=== PATIENT | female | born 1960 | race Caucasian/White ===

== ENCOUNTER 2017-12-17 13:27 | Emergency (ER) | payer MEDICARE ==
--- NOTE | 2017-12-17 14:10 | ULT ---
ULTRASOUND WITH DOPPLER DUPLEX VENOUS LOWER EXTREMITY LEFT: Date: 12/17/17 HISTORY: 56-year-old female with left lower extremity pain. TECHNIQUE: Color flow Doppler, spectral waveform analysis of pulsed Doppler, and dominique-scale imaging with loren macy and augmentation, were used to evaluate the left common femoral, femoral, popliteal, posterior t ibial, and superficial femoral, veins; and the proximal portions of the profunda femoral and greater saphenous, veins. FINDINGS: There is normal compressibility, demonstration of blood flow by color Doppler and pulsed Doppler, and response to augmentation, in all interrogated veins. IMPRESSION: Negative. No deep vein thrombosis in the left lower extremity. jn[] POS: [facility]
== END 2017-12-17 15:02 | disposition home or self-care (01) ==
LOC: ERS 13:27
DX: S80.12XA Contusion of left lower leg, initial encounter (principal); I10 Essential (primary) hypertension; F44.81 Dissociative identity disorder; E78.5 Hyperlipidemia, unspecified; E78.00 Pure hypercholesterolemia, unspecified; W55.19XA Other contact with horse, initial encounter; M79.605 Pain in left leg

== ENCOUNTER 2018-02-11 14:52 | Outpatient (CLI) | payer MEDICARE | END 2018-02-11 14:53 | disposition home or self-care (01) | LOC: BICMAMMO 14:52 | PROVIDERS: ATTEND Family Medicine | DX: Z12.31 Encounter for screening mammogram for malignant neoplasm of breast (principal) | CPT/HCPCS: 77063; 77067 ==

== ENCOUNTER 2019-07-16 11:04 | Outpatient (CLI) | payer MEDICARE ==
--- NOTE | 2019-07-17 08:49 | MMO ---
Bilateral MAMMO Bilat Screen [facility]. CLINICAL HISTORY: Patient is 58 years old and is seen for screening. The patient has no family history of breast cancer. The patient has no personal history of cancer. VIEWS: The views performed were: bilateral craniocaudal with tomosynthesis and bilateral mediolateral oblique with tomosynthesis. FILMS COMPARED: The present examination has been compared to prior imaging studies performed at [facility] on 08/04/2012, 08/07/2013, 03/25/2015 and 02/11/2018. This study has been interpreted with the assistance of computer-aided detection. MAMMOGRAM FINDINGS: The breasts are heterogeneously dense, which could obscure a lesion on mammography. Benign calcifications are noted bilaterally. There are no suspicious masses, suspicious calcifications, or new areas of architectural distortion. IMPRESSION: THERE IS NO MAMMOGRAPHIC EVIDENCE OF MALIGNANCY. A ROUTINE FOLLOW-UP MAMMOGRAM IN 1 YEAR IS RECOMMENDED. THE RESULTS OF THIS EXAM WERE SENT TO THE PATIENT. ACR BI-RADS Category 2 - Benign finding MAMMOGRAPHY NOTE: 1. A negative mammogram report should not delay a biopsy if a dominant of clinically suspicious mass is present. 2. Approximately 10% to 15% of breast cancers are not detected by mammography. 3. Adenosis and dense breasts may obscure an underlying neoplasm. Reported by: King PARKS Electonically Signed: [id number]
== END 2019-07-16 11:05 | disposition home or self-care (01) ==
LOC: BICMAMMO 11:04
PROVIDERS: ATTEND Family Medicine
DX: Z12.31 Encounter for screening mammogram for malignant neoplasm of breast (principal)
CPT/HCPCS: 77063; 77067

== ENCOUNTER 2021-01-09 11:54 | Outpatient (CLI) | payer MEDICARE | END 2021-01-09 11:55 | disposition home or self-care (01) | LOC: BICMAMMO 11:54 | PROVIDERS: ATTEND Family Medicine | DX: Z12.31 Encounter for screening mammogram for malignant neoplasm of breast (principal) | CPT/HCPCS: 77063; 77067 ==

== ENCOUNTER 2022-04-27 09:47 | Outpatient (CLI) | payer MEDICARE | END 2022-04-27 09:48 | disposition home or self-care (01) | LOC: BICMAMMO 09:47 | PROVIDERS: ATTEND Family Medicine | DX: Z12.31 Encounter for screening mammogram for malignant neoplasm of breast (principal) | CPT/HCPCS: 77063; 77067 ==

== ENCOUNTER 2023-09-02 14:40 | Outpatient (CLI) | payer MEDICARE | END 2023-09-02 14:41 | disposition home or self-care (01) | LOC: BICMAMMO 14:40 | PROVIDERS: ATTEND Internal Medicine | DX: Z12.31 Encounter for screening mammogram for malignant neoplasm of breast (principal); Z80.3 Family history of malignant neoplasm of breast | CPT/HCPCS: 77063; 77067 ==

== ENCOUNTER 2024-10-01 13:03 | Outpatient (CLI) | payer MEDICARE | END 2024-10-01 13:04 | disposition home or self-care (01) | LOC: BICMRI 13:03 | PROVIDERS: ATTEND Nurse Practitioner Family | DX: S99.912D Unspecified injury of left ankle, subsequent encounter (principal); M79.672 Pain in left foot; R09.89 Other specified symptoms and signs involving the circulatory and respiratory systems; M25.472 Effusion, left ankle; M67.874 Other specified disorders of tendon, left ankle and foot; R93.6 Abnormal findings on diagnostic imaging of limbs | CPT/HCPCS: 36415; 82565; 93923 ==

== ENCOUNTER 2024-10-13 08:35 | Outpatient (CLI) | payer MEDICARE | END 2024-10-13 08:36 | disposition home or self-care (01) | LOC: CT 08:35 | PROVIDERS: ATTEND Nurse Practitioner Family | DX: R09.89 Other specified symptoms and signs involving the circulatory and respiratory systems (principal); I70.0 Atherosclerosis of aorta; R16.0 Hepatomegaly, not elsewhere classified; K76.0 Fatty (change of) liver, not elsewhere classified; N32.89 Other specified disorders of bladder; N28.9 Disorder of kidney and ureter, unspecified | CPT/HCPCS: 36415; 75635; 82565 ==

== ENCOUNTER 2024-11-02 08:53 | Outpatient (CLI) | payer MEDICARE ==
[2024-11-02] MEDS ORDERED: Iopamidol 370 76% 100 ML VIAL ONE (12:05)
== END 2024-11-02 08:54 | disposition home or self-care (01) ==
LOC: CT 08:53
PROVIDERS: ATTEND Family Medicine
DX: N28.1 Cyst of kidney, acquired (principal); D17.71 Benign lipomatous neoplasm of kidney
CPT/HCPCS: 74170; 82565; Q9967